=== PATIENT | female | born 1990 | race Caucasian/White ===

== ENCOUNTER 2019-03-20 20:31 | Emergency (ER) | payer OTHER ==
[~2019-03-20] VITALS: Ht 160 cm; Wt 77.1 kg
[2019-03-20 20:46] VITALS: BP 136/82
[2019-03-20] MEDS ORDERED: KETOROLAC TROMETHAMINE INJ 30 MG/ML VIAL IM ONE (21:30)
[2019-03-20] MEDS ORDERED: oxyCODONE/APAP (5/325 MG) 1 UDTAB TABLET PO ONE (21:30)
[2019-03-20] MEDS ORDERED: KETOROLAC TROMETHAMINE INJ 30 MG/ML VIAL ONE (21:31)
[2019-03-20] MEDS ORDERED: oxyCODONE/APAP (5/325 MG) 1 UDTAB TABLET ONE ×2 (21:32)
== END 2019-03-20 22:06 | disposition home or self-care (01) ==
LOC: ER 20:37
DX: S39.012A Strain of muscle, fascia and tendon of lower back, initial encounter (principal); S19.80XA Other specified injuries of unspecified part of neck, initial encounter; S09.8XXA Other specified injuries of head, initial encounter; Z98.890 Other specified postprocedural states; V49.49XA Driver injured in collision with other motor vehicles in traffic accident, initial encounter; Y93.89 Activity, other specified; Y92.413 State road as the place of occurrence of the external cause; Y99.8 Other external cause status
CPT/HCPCS: 96372; 99283; J1885

== ENCOUNTER 2019-07-25 22:58 | Inpatient (IN) | payer OTHER ==
[~2019-07-25] VITALS: Ht 160 cm; Wt 83.5 kg
--- NOTE | 2019-07-25 23:22 | NUR ---
PT AAOX4. AMBULATORY C/O PELVIC PAIN RADIATING TO CHEST AND BACK. PT STATES PAIN IS 10/10 SHARP. +DIRRHEA, +NAUSEA. BRUISE NOTED ON R FOREARM SP FALLING X3 DAYS AGO. PLACED ON MONITOR AND PULSE OX. NO ACUTE DISTRESS NOTED. AWAITING MD FOR EVAL.
[2019-07-25] MEDS ORDERED: HYDROMORPHONE HCL 2 MG TABLET ONE (23:50)
[2019-07-25] MEDS ORDERED: ONDANSETRON 4 MG TAB.RAPDIS ONE (23:51)
--- NOTE | 2019-07-25 23:55 | NUR ---
Decorator Mannequin at bedside for blood collection
[2019-07-26 00:04] LABS: BASOPHILS % (AUTO) 0.7 % (0.0-2.0); EOSINOPHILS % (AUTO) 0.4 % (0.0-6.0); HEMATOCRIT 41 % (33-45); HEMOGLOBIN 13.4 g/dL (11.5-14.8); LYMPHOCYTES # (AUTO) 1.3 /CMM (0.8-4.8); LYMPHOCYTES % (AUTO) 21.3 % (20.0-44.0); MEAN CORPUSCULAR HGB CONC 33 g/dl (31.0-36.0); MEAN CORPUSCULAR VOLUME 91 fL (82-100); MONOCYTES # (AUTO) 0.4 /CMM (0.1-1.30); MONOCYTES % (AUTO) 6.5 % (2.0-12.0); NEUTROPHILS # (AUTO) 4.2 /CMM (1.8-8.9); NEUTROPHILS % (AUTO) 71.1 % (43.0-81.0); PLATELET COUNT (AUTO) 234 /CMM (150-450); RED BLOOD CELL COUNT(AUTO) 4.49 MIL/uL (4.0-5.2); WHITE BLOOD COUNT (AUTO) 5.9 K/uL (4.3-11.0)
[2019-07-26 00:22] LABS: CALCIUM, SERUM 9.6 mg/dL (8.5-10.1); CREATININE 0.6 mg/dL (0.6-1.3); POTASSIUM 3.9 mmol/L (3.5-5.1)
[2019-07-26 00:28] LABS: BILIRUBIN,TOTAL 0.3 mg/dL (0.2-1.0); TOTAL PROTEIN, SERUM 7.7 g/dL (6.4-8.2)
--- NOTE | 2019-07-26 00:45 | NUR ---
US AT BEDSIDE
[2019-07-26] MEDS ORDERED: HYDROMORPHONE HCL 2 MG TABLET PO PRN ×2 (02:00)
[2019-07-26 02:05] LABS: APPEARANCE,URINE Clear (CLEAR); BILIRUBIN,URINE Negative (NEGATIVE); BLOOD, URINE Trace-intact Ery/uL (NEGATIVE); COLOR,URINE Yellow (YELLOW); KETONES,URINE Trace (NEGATIVE); LEUKOCYTE ESTERASE ,URINE Negative (NEGATIVE); NITRITE, URINE Negative (NEGATIVE); PROTEIN,URINE Negative (NEGATIVE); UGLUCOSE Negative (NEGATIVE); UROBILINOGEN,URINE 0.2 EU/dL (0.2)
[2019-07-26] MEDS ORDERED: HYDROMORPHONE HCL 2 MG TABLET ONE (02:05)
--- NOTE | 2019-07-26 02:10 | NUR ---
PT BROUGHT TO CT
[2019-07-26 02:16] LABS: BACTERIA,URINE Few /HPF (None Seen); RBC,URINE 0-2 /HPF (0-2); SQUAMOUS EPITHELIAL CELL,UR Few /HPF (None Seen)
--- NOTE | 2019-07-26 02:30 | NUR ---
PT BROUGHT BACK FROM CT
[2019-07-26] MEDS ORDERED: ONDANSETRON 4 MG TAB.RAPDIS ONE (03:42)
[2019-07-26] MEDS ORDERED: ONDANSETRON 4 MG TAB.RAPDIS SL ONE ×2 (04:00)
[2019-07-26] MEDS ORDERED: ONDANSETRON HCL/PF - ER 4 MG/2 ML VIAL IV ONE (04:00)
--- NOTE | 2019-07-26 04:18 | NUR ---
PT RESTING COMFORTABLY IN BED. FAMILY AT BEDSIDE. VSS.
[2019-07-26] MEDS ORDERED: IV NS 0.9% 1,000 ML IV PRN (04:25)
[2019-07-26] MEDS ORDERED: Z GUARD REMEDY 2 OZ OINT TP PRN (04:30)
[2019-07-26] MEDS ORDERED: oxyCODONE/APAP (5/325 MG) 1 UDTAB TABLET PO PRN (04:30)
[2019-07-26] MEDS ORDERED: MAGNESIUM HYDROXIDE 30 ML UDC PO PRN (04:30)
[2019-07-26] MEDS ORDERED: MAG HYDROX/AL HYDROX/SIMETH 30 ML UDC PO PRN (04:30)
[2019-07-26] MEDS ORDERED: ONDANSETRON HCL/PF 4 MG/2 ML VIAL IVP PRN (04:30)
[2019-07-26] MEDS ORDERED: ACETAMINOPHEN 325 MG TABLET PO PRN (04:30)
--- NOTE | 2019-07-26 04:48 | NUR ---
M/S 113-2
--- NOTE | 2019-07-26 05:00 | NUR ---
GAVE REPORT TO MAREK MENDEZ FOR KIMANI
--- NOTE | 2019-07-26 05:20 | NUR ---
ANDREA MS ADMISSION NOTES RECEIVED PATIENT FROM ER. DX. INTRACTABLE PELVIC PAIN. PATIENT IS ALERT AND ORIENTED X4, VERBALLY RESPONSIVE, ABLE TO MAKE NEEDS KNOWN. BREATHING EVEN AND UNLABORED. NO SOB NOTED. ON ROOM AIR. WITH COMPLAINTS OF PAIN IN THE PELVIC/ABDOMEN AREA. WILL GIVE PRN PAIN MED ORDERED. DENIES CHEST PAIN, NO N/V OBSERVED. SKIN DRY AND WARM TO TOUCH. AFEBRILE. SKIN CHECK RENDERED. PATIENT REFUSED TO TAKE OFF PANTS BUT SHOWED BUTTOCKS AREA WITH NOTED BRUISE ON THE RIGHT BUTTOCKS. ALSO WITH BRUISE ON RIGHT FOREARM. PER PATIENT, SHE FELL 3 DAYS AGO AFTER "MISSING A STEP." OTHERWISE NO OTHER SKIN ISSUES NOTED. ORIENTED TO THE USE OF UNIT AMENITIES. INSTRUCTED ON THE USE OF CALL LIGHT. ALL NEEDS ATTENDED TO, SAFETY MEASURES IN PLACE. WILL CONTINUE TO MONITOR.
--- NOTE | 2019-07-26 05:39 | NUR ---
PT TRANSFERRED VIA [facility]
[2019-07-26] MEDS ORDERED: OXYC-133 PO (06:19)
[2019-07-26] MEDS ORDERED: PANTOPRAZOLE 40 MG TABLET.DR PO SCH (07:30)
--- NOTE | 2019-07-26 07:38 | NUR ---
MS RN NOTES PATIENT IS A/O X4 ON ROOM AIR. ABLE TO AMBULATE. NO SOB NOTED AT THIS TIME. PATIENT IS COMPLAINING THAT HER HOME PAIN MEDS ARE NOT HELPING HER PAIN. CALL LIGHT WITHIN REACH . BED AT THE LOWEST POSITION LOCKED.
[2019-07-26 08:00] VITALS: BP 141/83
[2019-07-26] MEDS ORDERED: BISACODYL (5 MG) 5 MG TABLET.DR PO ONE (09:00)
[2019-07-26] MEDS ORDERED: HYDROMORPHONE 1 MG/1 ML DISP.SYRIN IV PRN (09:30)
--- NOTE | 2019-07-26 12:11 | NUR ---
MS RN NOTES PATIENT LEFT AMA. FORM SIGNED AND PLACED IN CHART.PATIENT WAS AMBULATORY . ABLE TO WALK BY HERSELF.
== END 2019-07-26 11:45 | disposition left against medical advice (07) | DRG 761 ==
LOC: ER 22:59 → MEDSG1 07-26 04:55
PROVIDERS: ADMIT Nurse Practitioner Acute Care; ATTEND Registered Nurse
DX: N83.209 Unspecified ovarian cyst, unspecified side (principal); G89.4 Chronic pain syndrome; Z98.84 Bariatric surgery status; Z98.890 Other specified postprocedural states; V89.2XXS Person injured in unspecified motor-vehicle accident, traffic, sequela; Z87.442 Personal history of urinary calculi
CPT/HCPCS: 36415; 76705-TC; 76856-TC; 80048-TC; 80076-TC; 81000-TC; 83690-TC; 84484-TC; 84703-TC; 85025-TC; 85730-TC; 87081-TC; G0378; J1170; J2405; J7030; Q0162

== ENCOUNTER 2023-09-15 12:51 | Emergency (ER) | payer OTHER ==
[~2023-09-15] VITALS: Ht 165.1 cm; Wt 66.2 kg
[~2023-09-15 12:51] MED LIST: OXYC-133 PO
[2023-09-15 13:08] VITALS: TEMP 97.9
[2023-09-15] MEDS ORDERED: IV NS 0.9% 1,000 ML BAG IV ONE (13:30)
[2023-09-15 13:48] LABS: BASOPHILS % (AUTO) 0.2 % (0.0-2.0); EOSINOPHILS % (AUTO) 0.1 % (0.0-6.0); HEMATOCRIT 30 % (33-45); HEMOGLOBIN 9.2 g/dL (11.5-14.8); LYMPHOCYTES # (AUTO) 0.8 K/uL (0.8-4.8); LYMPHOCYTES % (AUTO) 9.4 % (20.0-44.0); MEAN CORPUSCULAR HEMOGLOBIN 23 PG (26.0-33.0); MEAN CORPUSCULAR HGB CONC 31 g/dl (31.0-36.0); MEAN CORPUSCULAR VOLUME 74 fL (82-100); MONOCYTES # (AUTO) 0.8 K/uL (0.1-1.30); MONOCYTES % (AUTO) 9.5 % (2.0-12.0); NEUTROPHILS # (AUTO) 7.1 K/uL (1.8-8.9); NEUTROPHILS % (AUTO) 80.8 % (43.0-81.0); PLATELET COUNT (AUTO) 259 K/uL (150-450); RED CELL DISTRIBUTION WIDTH 18.7 % (11.5-15.0); WHITE BLOOD COUNT (AUTO) 8.8 K/uL (4.3-11.0)
[2023-09-15 14:09] LABS: ALANINE AMINOTRANSFERASE 244 U/L (12-78); ALBUMIN 3.4 g/dL (3.4-5.0); ALCOHOL, BLOOD < 3 mg/dL (0-10); ALKALINE PHOSPHATASE 690 U/L (46-116); ASPARTATE AMINOTRANSFERASE 521 U/L (15-37); BILIRUBIN,DIRECT 0.6 mg/dL (0.0-0.2); BILIRUBIN,TOTAL 0.7 mg/dL (0.2-1.0); CALCIUM, SERUM 8.9 mg/dL (8.5-10.1); CHLORIDE 100 mmol/L (98-107); GLUCOSE 108 mg/dL (74-106); POTASSIUM 4.1 mmol/L (3.5-5.1); SODIUM SERUM 134 mmol/L (136-145); TOTAL PROTEIN, SERUM 7.4 g/dL (6.4-8.2); UREA NITROGEN, BLOOD 13 mg/dL (7-18)
[2023-09-15 14:22] LABS: CARBON DIOXIDE 27 mmol/L (21-32)
[2023-09-15 14:23] LABS: ACETAMINOPHEN <10 ug/ml (10-30)
[2023-09-15] MEDS ORDERED: DICY20TA11 PO (14:55)
[2023-09-15] MEDS ORDERED: ZOLP10TA2 PO (14:55)
[2023-09-15] MEDS ORDERED: PYRI25TA4 PO (14:55)
[2023-09-15] MEDS ORDERED: ONDA4TAB5 PO (14:55)
[2023-09-15] MEDS ORDERED: QUET25TA PO (14:55)
[2023-09-15] MEDS ORDERED: LORA-259 PO (14:55)
[2023-09-15] MEDS ORDERED: FLUT16SP16 BNOSTRILS (14:55)
[2023-09-15 15:53] LABS: APPEARANCE,URINE SLIGHTLY CLOUDY (CLEAR); BILIRUBIN,URINE 1+ (NEGATIVE); BLOOD, URINE NEGATIVE Ery/uL (NEGATIVE); COLOR,URINE YELLOW (YELLOW); KETONES,URINE NEGATIVE (NEGATIVE); LEUKOCYTE ESTERASE ,URINE 1+ (NEGATIVE); NITRITE, URINE NEGATIVE (NEGATIVE); PH,URINE 6.5 (5.0-8.0); PROTEIN,URINE TRACE mg/dl (NEGATIVE); UGLUCOSE NEGATIVE (NEGATIVE)
[2023-09-15 15:55] LABS: PREGNANCY TEST URINE QUAL NEGATIVE (NEGATIVE)
[2023-09-15 16:06] LABS: ADD URINE CULTURE YES; BACTERIA,URINE 2+ /HPF (None Seen); RBC,URINE 0-2 /HPF (0-2); SQUAMOUS EPITHELIAL CELL,UR Moderate /HPF (None Seen); WBC,URINE 21-50 /HPF (0-3)
[2023-09-15 16:17] LABS: AMPHETAMINE, URINE NEGATIVE (NEGATIVE); BARBITURATE, URINE NEGATIVE (NEGATIVE); BENZODIAZEPINE, URINE NEGATIVE (NEGATIVE); COCCAINE, URINE NEGATIVE (NEGATIVE); OPIATE, URINE NEGATIVE (NEGATIVE); PHENCYCLIDINE SCREEN,URINE NEGATIVE (NEGATIVE)
[2023-09-15 16:19] LABS: CANNABINOID, URINE POSITIVE (NEGATIVE)
[2023-09-15] MEDS ORDERED: ONDANSETRON HCL/PF 4 MG/2 ML VIAL IVP PRN (16:30)
[2023-09-15] MEDS ORDERED: IV NS 0.9% 1,000 ML IV PRN (16:30)
[2023-09-15] MEDS ORDERED: ACETAMINOPHEN 325 MG TABLET PO PRN (16:30)
[2023-09-15] MEDS ORDERED: CEFTRIAXONE 1GM BAG (ER ONLY) 50 ML IV ONE (16:59)
[2023-09-15] MEDS ORDERED: CEFTRIAXONE 1 G in IV D5W 50 ML IV SCH (17:00)
[2023-09-15] MEDS ORDERED: IV NS 0.9% 500 ML BAG IV ONE (20:30)
[2023-09-15 23:18] VITALS: BP 125/79; O2SAT 98
== END 2023-09-15 23:11 | disposition left against medical advice (07) ==
LOC: ER 12:56
DX: T43.591A Poisoning by other antipsychotics and neuroleptics, accidental (unintentional), initial encounter (principal); R10.2 Pelvic and perineal pain; Z79.899 Other long term (current) drug therapy; Z98.890 Other specified postprocedural states; Z88.1 Allergy status to other antibiotic agents; Y92.89 Other specified places as the place of occurrence of the external cause
CPT/HCPCS: 99291; 96360; 96361; 93005; 76705; 85025; 80048; 87086; 80076; 84703; 81001; 36415; 80143; 80320; 80307; J7030 ×3; A4223; G0480; J0696; J7060